=== PATIENT | male | born 1980 | race Caucasian/White ===

== ENCOUNTER 2017-12-05 08:42 | Emergency (ER) | payer OTHER ==
[~2017-12-05 08:42] MED LIST: KEFLEX500 MG PO; LAMOTRIGINE150 MG PO; MEDROL DOSEPAK1 PAC PO; ONFI10 MG PO; OXCARBAZEPINE300 MG PO; QUETIAPINE FUMA25 MG PO; TOPIRAMATE200 MG PO; VIBRAMYCIN 100100 MG PO
[2017-12-05] MEDS ORDERED: OXTELLAR XR300 MG PO (09:51)
[2017-12-05] MEDS ORDERED: ONFI20 MG PO ×2 (09:52)
[2017-12-05] MEDS ORDERED: NORTRIPTYLINE H25 M2 PO (09:53)
[2017-12-05] MEDS ORDERED: FOLBIC TABLET1 EACH PO (09:53)
[2017-12-05] MEDS ORDERED: REGLAN10 M1 PO (09:54)
[2017-12-05] MEDS ORDERED: CITRACAL + D M1 EACH PO (09:54)
[2017-12-05] MEDS ORDERED: NAPROXEN500 M2 PO (09:55)
--- NOTE | 2017-12-05 10:13 | ED NEURO DEFICIT/STROKE ---
History of Present Illness General Chief Complaint: Upper Extremity Injury Stated Complaint: LFT SHOULDER AND NECK PAIN Source: patient, family Exam Limitations: no limitations Vital Signs & Intake/Output Vital Signs & Intake/Output Vital Signs Date Time Temp Pulse Resp B/P B/P Pulse O2 O2 Flow FiO2 Mean Ox Delivery Rate 12/05 1212 98.2 86 18 160/81 100 Room Air 12/05 1130 98.2 12/05 1030 97.0 12/05 0851 97.0 110 22 125/83 97 Allergies Coded Allergies: lamotrigine (From LAMICTAL) (Mild, RASH 12/05/17) Reconcile Medications Calcium Citrate/Vitamin D3 (Citracal + D Maximum Caplet) 315 MG-250 UNIT TABLET 2 TAB PO BID VITAMIN SUPPORT (Reported) Clobazam (ONFI) 20 MG TABLET 1 TAB PO DAILY SEIZURES (Reported) Clobazam (ONFI) 20 MG TABLET 1.5 TAB PO QPM SEIZURES (Reported) Cyanocobalamin/FA/Pyridoxine (Folbic Tablet) 2 MG-2.5 MG-25 MG TABLET 1 TAB PO DAILY VITAMIN SUPPORT (Reported) Metoclopramide HCl (Reglan) 10 MG TABLET 1 TAB PO DAILY PRN HEADACHE ( Reported) Naproxen 500 MG TABLET 1 TAB PO BID PRN HEADACHE (Reported) Nortriptyline HCl 25 MG CAPSULE 2 CAP PO QPM SEIZURES (Reported) Oxcarbazepine (Oxtellar XR) 300 MG TAB.ER.24H 1 TAB PO BID SEIZURES (Reported ) Triage Note: PER PT HAD A SZ ON MONDAY, WITH HX OF SAME, FELL INTO GARBAGE CAN WAS POST ICTAL M,OST OF DAY, BUT HAS HAD INCREASING PAIN TO L SHOULDER AND NECK DIFF TO TURN TO LEFT TYLENOL WITHOUT EFFECT NB: PT RECENT SPLENECTOMY 10/15 Triage Nurses Notes Reviewed? yes HPI: 37 yo M PMH Epilepsy (on onfi, oxycarbazipine) presenting with neck pain s/p fall. Patient had seizure 4 days ago, did not come to ED for evaluation, states he was found by his father and does not know how he fell or if he suffered head/ neck trauma, states he was post-ictal for much of the day, but has noted persistent neck and shoulder pain since that evening, worse with movement of neck or left shoulder, associated new waxing and waning parasthesias in left arm without motor weakness. Patient states that he frequently has seizures (2-3x per month), spoke with his neurologist after seizure 4 days ago and dosing of anti- epileptics were increased. Denies associated fevers, chills, chest pain, SOB, palpitations, abdominal pain, N/V, headache. (Silver Garcia MD) Past History Travel History Traveled to [place] past 21 day No Medical History Any Pertinent Medical History? 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 Yes (Silver Garcia MD) Review of Systems Review of Systems Constitutional: Reports: no symptoms. EENTM: Reports: no symptoms. Respiratory: Reports: no symptoms. Cardiovascular: Reports: no symptoms. GI: Reports: no symptoms. Genitourinary: Reports: no symptoms. Musculoskeletal: Reports: see HPI. Skin: Reports: no symptoms. Neurological/Psychological: Reports: see HPI. Hematologic/Endocrine: Reports: no symptoms. Immunologic/Allergic: Reports: no symptoms. All Other Systems: Reviewed and Negative (Silver Garcia MD) Physical Exam Physical Exam General Appearance: well developed/nourished, no apparent distress, alert Head: atraumatic Eyes: Bilateral: PERRL, EOMI. Ears, Nose, Throat: moist mucous membrane Neck: normal inspection, stiff neck, tender midline Respiratory: normal breath sounds, no respiratory distress, lungs clear Cardiovascular: tachycardia Peripheral Pulses: 2+ radial (R), 2+ radial (L), 2+ dorsalis pedis (R), 2+ dorsalis pedis (L) Gastrointestinal: soft, non-tender Back: normal inspection, no vertebral tenderness Cranial Nerves: PERRL Comments: HEENT: Atraumatic C-spine: Mildine c-spine TTP, TTP over left paracervical muscles and left trapezius Neurologic: Cr nerves II-XII intact, normal strength throughout bilateral upper and lower extremities, Endorses parasthesias of left upper extremity to shoulder MSK: TTP over left distal shoulder with ROM reduced 2/2 pain Abdomen: Midline laparotomy scar, soft and non-TTP throughout Core Measures CVA/TIA Diagnosis: No Sepsis Present: No Sepsis Focused Exam Completed? No (Radha IZQUIERDO,Silver) Progress Differential Diagnosis: acute glaucoma, Valera's Palsy, drug intoxication, electrolyte imbalance, encephalitis, hypoglycemia, intracranial Hem., intracranial mass/tumor, meningitis, migraine GARCIA, seizure disorder, stroke, subarachnoid Hem., vertebrobasilar insuff. Plan of Care: Orders Procedure Date/time Status MAGNESIUM 12/05 1013 Complete CBC WITHOUT DIFFERENTIAL 12/05 1013 Complete BASIC METABOLIC PANEL 12/05 1013 Complete EKG 12/05 1013 Active Laboratory Tests 12/05/17 1040: Anion Gap 11, Estimated GFR > 60, BUN/Creatinine Ratio 10.0, Glucose 91, Calcium 10.0, Magnesium 1.6, CBC w Diff NO MAN DIFF REQ, RBC 4.53 L, MCV 75.7 L, MCH 23.3 L, MCHC 30.8 L, RDW 22.3 H, MPV 7.2 L, Gran % 72.1, Lymphocytes % 17.1 L, Monocytes % 9.6 H, Eosinophils % 0.5, Basophils % 0.7, Absolute Granulocytes 7.9 H, Absolute Lymphocytes 1.9, Absolute Monocytes 1.1 H, Absolute Eosinophils 0.1, Absolute Basophils 0.1 Physician MDM: 37 yo M PMH Epilepsy (on onfi, oxycarbazipine) presenting with neck pain s/p fall. Tachycardic in the 110s, BP stable, remainder of exam as above. DDx: ICH, C-spine Fx, Shoulder Fx, Metabolic derrangement, low concern for intrathroacic or intrabdominal trauma. I have significant concern about a cervial spine fracture given the midline tenderness to palpation and left arm parasthesias and I applied a hard cervical collar at the time of my initial evaluation. Labs remarkable to leukocysosis, thrombocytosis, anemia, ? hemoconcentration. 1L NS ordered given tachycardia. BMP with hyponatremia, hypochloremia, patient notes that he his hyponatremic at baseline, last known value 127. Left shoulder XR with AC dislocation and possible distal clavicular fracture. C-Spince CT with C4 Fx, possible C5 Fx. On re-examination patient remains in cercial collar, neurologic exam unchanged. FAST negative for FF. Trauma Surgery at [facility] contacted via [facility], patient consents to transfer, will travel by ambulace to [place] ED as a Full Trauma, accepted by Dr. Selin Frederick. Initial ED EKG: NSR (Radha IZQUIERDO,Silver) Departure Departure Disposition: OTHER [facility] (ACUTE) Condition: Stable Clinical Impression Primary Impression: Cervical spine fracture Referrals: Unknown (PCP/Family) Departure Forms: Customer Survey General Discharge Information (Radha IZQUIERDO,Silver) Resident Co-Sign Statement Statement: ED Attending supervision documentation I reviewed the patient's plan of care and I agree with the physician's evaluation and treatment. (Niles Moon DO)
[2017-12-05 10:51] LABS: ABSOLUTE BASOPHIL COUNT 0.1 /CUMM (0.0-0.2); ABSOLUTE EOSINOPHIL COUNT 0.1 /CUMM (0.0-0.7); ABSOLUTE GRANULOCYTE CT 7.9 /CUMM (1.4-6.5); ABSOLUTE LYMPH COUNT 1.9 /CUMM (1.2-3.4); ABSOLUTE MONOCYTE COUNT 1.1 /CUMM (0.10-0.60); BASOPHIL % 0.7 % (0.0-2.0); EOSINOPHIL % 0.5 % (0-5); GRANULOCYTE % 72.1 % (42.2-75.2); HEMATOCRIT 34.3 % (42-52); MEAN CORPUSCULAR HGB 23.3 PG (27.0-31.0); MEAN CORPUSCULAR HGB CONC 30.8 G/DL (33.0-37.0); MEAN CORPUSCULAR VOLUME 75.7 FL (80.0-94.0); MEAN PLATELET VOLUME 7.2 FL (7.4-10.4); RBC DISTRIBUTION WIDTH 22.3 % (11.5-14.5); RED BLOOD CELL CT 4.53 /CUMM (4.70-6.10)
[2017-12-05 11:09] LABS: PLATELET COUNT 583 /CUMM (130-400)
--- NOTE | 2017-12-05 11:26 | RADIOLOGY REPORT ---
EXAMINATION: XR SHOULDER, LEFT CLINICAL INFORMATION: Pain status post fall COMPARISON: None TECHNIQUE: AP external rotation, Grashey, scapular Y, and axillary views of the left shoulder. FINDINGS: Glenohumeral joint appears well-preserved. There is a chronic deformity of the distal clavicle with osseous fragmentation its superior margin. As seen on the axillary view, there is a more age-indeterminate fracture line along the posterior inferior margin of the distal clavicle. Mild widening of the acromioclavicular joint is likely due to a prior acromioclavicular separation injury. Coracoclavicular distance is normal. Soft tissues are unremarkable. IMPRESSION: Chronic changes of a mild acromioclavicular separation injury with a possible acute superimposed distal clavicular fracture. Consider correlation with CT for better assessment of the distal clavicle.
--- NOTE | 2017-12-05 11:41 | CT SCAN REPORT ---
EXAMINATION: CT HEAD WITHOUT CONTRAST CT CERVICAL SPINE WITHOUT CONTRAST CLINICAL INFORMATION: 37-year-old man with seizure. COMPARISON: 09/23/[address] TECHNIQUE: Imaging was performed from the skull base to vertex without intravenous administration of contrast. In addition, helical noncontrast CT imaging was acquired through the cervical spine and source images were reviewed along with axial reconstructions and sagittal and coronal MPRs. DLP: 935 mGy-cm FINDINGS: HEAD: Since the patient's prior examination he has undergone prior right frontal (small) and left frontoparietal craniectomy and subsequent cranioplasty. A low-density extra-axial collection beneath the left cranioplasty flap is age indeterminate and measures up to 1.2 cm in diameter. At the superior margin of the cranioplasty flap, there is a second smaller low density collection measuring about 3 mm in width that is presumably postsurgical. There does appear to be mild mass effect on the adjacent portions of the left frontal and parietal lobes, although there is no compression of the lateral ventricle or midline shift, suggesting that this is a chronic finding. No intracranial mass or acute hemorrhage is appreciated. The paranasal sinuses remain well aerated. CERVICAL SPINE: There is an acute fracture through the left C4 inferior articular facet that extends slightly out into the lateral mass and posteriorly into the lamina. There may also be a subtle fracture through a left anterolateral marginal osteophyte arising from the superior C5 endplate. Alignment is somewhat difficult to assess given oblique patient positioning, although it appears to be relatively anatomic and no definite additional fractures are identified. No pre- or paravertebral soft tissue abnormality is identified. Limited assessment of the lung apices is unremarkable. IMPRESSION: 1. Left C4 posterior element fracture without definite alteration in alignment. Possible subtle anterior osteophyte fracture at C5 as well. 2. Multiple age indeterminate and most likely treatment related changes in the brain as described, new since the most recent prior head CT from 2012. No definite acute intracranial process.
[2017-12-05 12:12] VITALS: BP 160/81
--- NOTE | 2017-12-05 12:51 | RADIOLOGY REPORT ---
EXAMINATION:\H\ \N\XR CHEST CLINICAL INFORMATION: Pain, fall COMPARISON: No relevant priors available. TECHNIQUE: Frontal view of the chest was obtained. FINDINGS: No acute pulmonary opacity. Lungs especially expanded. No pleural effusion or pneumothorax. Normal cardiothymic mediastinal silhouette. Mildly displaced left ninth and 10th rib fractures. IMPRESSION: Mildly displaced left ninth and 10th rib fractures.
== END 2017-12-05 12:47 | disposition short-term general hospital (02) ==
LOC: ERH 08:42
PROVIDERS: Student in an Organized Health Care Education/Training Program
DX: S12.390A Other displaced fracture of fourth cervical vertebra, initial encounter for closed fracture (principal); W19.XXXA Unspecified fall, initial encounter; Y92.9 Unspecified place or not applicable; Y93.9 Activity, unspecified
CPT/HCPCS: 71045; 73030-LT; 93005; 93010; 96360